=== PATIENT | male | born 1975 | race Caucasian/White ===

== ENCOUNTER → 2016-12-30 | Outpatient (CLI) | payer BC | END | disposition home or self-care (01) | LOC: MW.CHFP 09:19 | PROVIDERS: ATTEND Physician Assistant | DX: J02.9 Acute pharyngitis, unspecified (principal) | CPT/HCPCS: 87081; 87880 ==

== ENCOUNTER 2021-10-28 12:23 | Emergency (ER) | payer BC | END 2021-10-28 14:53 | disposition home or self-care (01) | LOC: MW.ED 12:23 | DX: B02.9 Zoster without complications (principal); Z88.0 Allergy status to penicillin | CPT/HCPCS: 99282 ==